=== PATIENT | female | born 1975 | race Caucasian/White ===

== ENCOUNTER 2017-05-16 00:51 | Emergency (ER) | payer OTHER ==
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
--- NOTE | 2017-05-17 08:27 | ED MED RECONCILIATION SUMMARY ---
Patient: CAROLINE JOSEPH Medication Reconciliation Report [facility] VisitID: [id number] [address] [place] [address] 41y, F Registration Date/Time: 05/16/2017 Weight: 62.5 kg Height/Length: 64 in. BMI: 23.7 ALLERGIES: No Known Drug Allergy The patient's Home Medications are listed below: NONE. The source(s) of the original Home Medication information: Not obtained. The following Medications were given to the patient in the Emergency Department: None. The following Medications were prescribed to the patient: Triamcinolone 0.1% Cream: Apply to affected areas 2 times daily as needed. Dispense fifteen (15) gm. No refills. -- Primitivo Darden, DO
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
--- NOTE | 2017-05-17 08:27 | ED MAR SUMMARY ---
..... Medication Administration Record [facility] [address] [place], [place] [id number] Patient: CAROLINE JOSEPH Visit ID: [id number] 41y, F Weight: 62.5 kg Height/Length: 64 in BMI: 23.7 ALLERGIES: No Known Drug Allergy
--- NOTE | 2017-05-17 08:27 | ED MAR SUMMARY ---
..... Medication Administration Record [facility] [address] [place] [id number] Patient: CAROLINE JOSEPH Visit ID: [id number] 41y, F Weight: 62.5 kg Height/Length: 64 in BMI: 23.7 ALLERGIES: No Known Drug Allergy
--- NOTE | 2017-05-17 08:27 | ED MED RECONCILIATION SUMMARY ---
Patient: CAROLINE JOSEPH Medication Reconciliation Report [facility] VisitID: [id number] [address] [place] [address] 41y, F Registration Date/Time: 05/16/2017 Weight: 62.5 kg Height/Length: 64 in. BMI: 23.7 ALLERGIES: No Known Drug Allergy The patient's Home Medications are listed below: NONE. The source(s) of the original Home Medication information: Not obtained. The following Medications were given to the patient in the Emergency Department: None. The following Medications were prescribed to the patient: Triamcinolone 0.1% Cream: Apply to affected areas 2 times daily as needed. Dispense fifteen (15) gm. No refills. -- Primitivo Darden, DO
--- NOTE | 2017-05-17 08:27 | ED DISCHARGE INSTRUCTIONS ---
Patient: CAROLINE JOSEPH General Instructions [facility] VisitID: [id number] [place] [address] 41y, F Registration Date/Time: 05/16/2017 Single first degree thermal burn to the chest and to the right upper arm and to the right forearm and left upper arm and to the left forearm (resloving sunburn). Skin rash. No shingles, erythema multiforme, Lock Rangel syndrome, toxic epidermal necrolysis or erythema nodosum. INSTRUCTIONS Do not work for two days. (Continue the Claritin as directed). Warnings: GENERAL WARNINGS: Return or contact your physician immediately if your condition worsens or changes unexpectedly, if not improving as expected, or if other problems arise. Prescription Medications: Triamcinolone 0.1% Cream: Apply to affected areas 2 times daily as needed. Dispense fifteen (15) gm. No refills. Follow-up: Follow up with your doctor in about two days. ADDITIONAL INFORMATION Sunburn A sunburn is an injury to the skin caused by over-exposure to ultraviolet (UV) light from the sun. The skin becomes pink or red and painful. There may be headache and a low grade fever. Very severe sunburns may cause blistering and fluid draining from the skin. Open blisters may become infected, so watch for the signs below. The reaction begins to get better after 12 days. A few days later the skin begins to peel. Depending on how severe the burn is, it may take up to three weeks to fully heal. Home care The following guidelines will help you care for you sunburn at home: 1) Apply an ice pack (ice cubes in a plastic bag, wrapped in a towel) over the injured area for 20 minutes every 12 hours the first day for pain relief. Continue this 34 times a day until the pain goes away. Cool baths and showers will also give relief. 2) [id number] first-aid creams and sprays contain lidocaine or benzocaine, an anesthetic which also relieves pain. However, some persons are sensitive to "paul". If redness or itching increases, discontinue their use. 3) If blisters appear, don't break them. Open blisters slow the healing process and increase the risk of infection. Treat open blisters with antibacterial cream or ointment. 4) Wash the burned area daily with soap and water. Pat dry with a clean towel. Apply a moisturizing cream with aloe. Hydrocortisone cream (sold over the counter) may help decrease pain and swelling and speed up healing. If a dressing was applied, reapply it until any open blisters dry up. If the bandage sticks, soak it off in warm water. 5) You may use ibuprofen or naproxen to control pain, unless another pain medicine was prescribed. If you have chronic liver or kidney disease or ever had a stomach ulcer or GI bleeding, talk with your doctor before using these medicines. Do not use ibuprofen in children under six months of age. 6) Drink plenty of fluids to avoid dehydration. Prevention Sun exposure damages the DNA of skin cells and contributes to aging skin. It is the main cause of skin cancer. Protect your skin using the tips below: Limit your exposure to UV light. The sun is strongest during the hours 10 a.m. and 4 p.m. If possible, arrange your sun exposure to be before or after those hours. The effect is more intense at the beach where light reflects off the sand and water, and at higher altitudes, especially where there is reflecting snow. You can even get a sunburn on a cloudy day, since most of the UV light passes through clouds. Cover up with clothing and a hat. Clothing is more effective than sunscreen in blocking UV light. Stay in the shade or carry an umbrella. Apply sunscreen to uncovered skin. Reapply every two hours, and sooner if it is washed away by sweating or water. Use a sunscreen rated at SPF 15 or higher. Wear sunglasses to protect your eyes from UV exposure. Many heart, nausea, anti-inflammatory, and diabetic medications, as well as antibiotics and diuretics, can increase yoursensitivityto the sun. Check medication pamphlets and talk with your doctor if you are unsure about your increased risk of sun sensitivity. Sunscreens may not prevent this response. Follow-up care Most sunburns heal without infection. Occasionally an infection may occur despite proper treatment. Therefore, watch for the signs of infection listed below. When to seek medical care Get prompt medical attention if any of the following occur: Increasing pain Increasing redness, or red streaks leading away from an open blister Swelling or pus coming from open blisters Fever over 100.4 F (38.0 C) Dermatitis (Non-Specific) Dermatitis is an inflammation of the skin. The exact cause of your rash is not certain. However, this rash does not appear to be an infection or contagious illness. Taking care of the rash at home should help relieve your symptoms. Home Care: Keep the areas of rash clean by washing it daily. This also helps to keep the skin moist. Use a neutral pH soap such as Dove or Lever 2000. Apply a moisturizing lotion after bathing to prevent dry skin. Avoid skin irritants (wool or silk clothing, grease, oils, some medicines, harsh soaps, and detergents). Wear absorbent, soft fabrics next to the skin rather than rough or scratchy materials. Unless another medicine was prescribed, you may use Hydrocortisone cream (which you can get without a prescription) to reduce the inflammation. Follow Up: Make an appointment with your doctor in the next 1 to 2 weeks if your symptoms do not improve with the above measures. Get Prompt Medical Attention if any of the following occur: Increasing area of redness or pain in the skin Yellow crusts or drainage from the rash Joint pain New rash that appears in other areas of the body Fever of 100.4F (38C) or higher, or as directed by your healthcare provider Triamcinolone Acetonide, Distilled Water Topical cream What is this medicine? TRIAMCINOLONE (trye am SIN [place]) is a corticosteroid. It is used on the skin to reduce swelling, redness, itching, and allergic reactions. How should I use this medicine? This medicine is for external use only. Do not take by mouth. Follow the directions on the prescription label. Wash your hands before and after use. Apply a thin film of medicine to the affected area. Do not cover with a bandage or dressing unless your doctor or health pharmacy customer care specialist tells you to. Do not use on healthy skin or over large areas of skin. Do not get this medicine in your eyes. If you do, rinse out with plenty of cool tap water. It is important not to use more medicine than prescribed. Do not use your medicine more often than directed. Talk to your lead esthetician regarding the use of this medicine in children. Special care may be needed. Elderly patients are more likely to have damaged skin through aging, and this may increase side effects. This medicine should only be used for brief periods and infrequently in older patients. What side effects may I notice from receiving this medicine? Side effects that you should report to your doctor or health pharmacy customer care specialist as soon as possible: burning or itching of the skin dark red spots on the skin infection painful, red, pus filled blisters in hair follicles thinning of the skin, sunburn more likely especially on the face Side effects that usually do not require medical attention (report to your doctor or health pharmacy customer care specialist if they continue or are bothersome): dry skin, irritation unusual increased growth of hair on the face or body What may interact with this medicine? Interactions are not expected. What if I miss a dose? If you miss a dose, use it as soon as you can. If it is almost time for your next dose, use only that dose. Do not use double or extra doses. Where should I keep my medicine? Keep out of the reach of children. Store at room temperature between 15 and 30 degrees C (59 and 86 degrees F). Do not freeze. Throw away any unused medicine after the expiration date. What should I tell my health care provider before I take this medicine? They need to know if you have any of these conditions: diabetes infection, like tuberculosis, herpes, or fungal infection large areas of burned or damaged skin skin wasting or thinning an unusual or allergic reaction to triamcinolone, corticosteroids, other medicines, foods, dyes, or preservatives or trying to get breast-feeding What should I watch for while using this medicine? Tell your doctor or health pharmacy customer care specialist if your symptoms do not start to get better within one week. Do not use for more than 14 days. Do not use on healthy skin or over large areas of skin. Tell your doctor or health pharmacy customer care specialist if you are exposed to anyone with measles or chickenpox, or if you develop sores or blisters that do not heal properly. Do not use an airtight bandage to cover the affected area unless your doctor or health pharmacy customer care specialist tells you to. If you are to cover the area, follow the instructions carefully. Covering the area where the medicine is applied can increase the amount that passes through the skin and increases the risk of side effects. If treating the diaper area of a child, avoid covering the treated area with tight-fitting diapers or plastic pants. This may increase the amount of medicine that passes through the skin and increase the risk of serious side effects. You have been given the following additional information: Sunburn Dermatitis, Non-Specific Triamcinolone Acetonide, Distilled Water Topical cream Do not work for two days. (Electronically signed by Primitivo Darden DO 05/17/2017 8:27)
== END 2017-05-16 01:53 | disposition home or self-care (01) ==
LOC: ED SRH 00:51
DX: L55.0 Sunburn of first degree (principal); R21 Rash and other nonspecific skin eruption